=== PATIENT | female | born 1995 | race Caucasian/White ===

== ENCOUNTER 2020-01-20 10:13 | Emergency (ER) | payer SELFPAY ==
[2020-01-20 10:17] VITALS: BP 120/57
[2020-01-20] MEDS ORDERED: DIPHENHYDRAMINE HCL 50 MG CAPSULE PO ONE (10:20)
[2020-01-20] MEDS ORDERED: FAMOTIDINE 20 MG TABLET PO ONE (10:21)
--- NOTE | 2020-01-20 10:27 | ER Document Report ---
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 She has no difficulty breathing swallowing taking p.o. food or fluid she did take Benadryl last night with limited results Associated Symptoms: denies: Nausea, Vomiting, Shortness of breath, Slow to respond, Sore throat Exacerbated by: Denies - REPRODUCTIVE Reproductive: REPORTS: : Past Medical History - General Information source: Patient - Social History Smoking Status: Never Smoker Cigarette use (# per day): No Chew tobacco use (# tins/day): No Smoking Education Provided: No Frequency of alcohol use: None Drug Abuse: None Family History: Reviewed & Not Pertinent Pulmonary Medical History: Reports: Hx Asthma Past Surgical History: Reports: Hx Oral Surgery - wisdom teeth - Immunizations Immunizations up to date: Yes Hx Diphtheria, Pertussis, Tetanus Vaccination: Yes Vertical Provider Document - CONSTITUTIONAL Agree With Documented VS: Yes - INFECTION CONTROL TRAVEL OUTSIDE OF THE [place] IN LAST 30 DAYS: No - HEENT HEENT: Atraumatic, Conjuctival Injection, Normocephalic, PERRLA - NECK Neck: Normal Inspection - RESPIRATORY Respiratory: Breath Sounds Normal, No Respiratory Distress - GI/ABDOMEN Gastrointestinal: Abdomen Soft, Abdomen Non-Tender - REPRODUCTIVE Female Genitalia: Normal Inspection - BACK Back: Normal Inspection - MUSCULOSKELETAL/EXTREMETIES Musculoskeletal/Extremeties: MAEW - NEURO Level of Consciousness: Awake, Alert - DERM Integumentary: Warm - Scant erythemic pruritic area to the bridge of her nose, Dry Course - Re-evaluation Re-evalutation: 01/20/20 10:24 No difficulty breathing or difficulty swallowing no difficulty managing secretions - Vital Signs Vital signs: Temp Pulse Resp BP Pulse Ox 98.2 F 93 14 120/57 L 98 01/20/20 10:16 01/20/20 10:16 01/20/20 10:16 01/20/20 10:16 01/20/20 10:16 Discharge - Discharge Clinical Impression: Acute allergic reaction Qualifiers: Encounter type: initial encounter Qualified Code(s): T78.40XA - Allergy, unspecified, initial encounter Disposition: HOME, SELF-CARE Instructions: Acute Allergic Reaction ([facility]) Prescriptions: Diphenhydramine HCl [Benadryl 25 mg Capsule] 50 mg PO Q6 PRN #25 capsule PRN Reason: Famotidine [Pepcid 20 mg Tablet] 20 mg PO DAILY #12 tablet
== END 2020-01-20 10:35 | disposition home or self-care (01) ==
LOC: ER 10:13
DX: T78.40XA Allergy, unspecified, initial encounter (principal); T63.441A Toxic effect of venom of bees, accidental (unintentional), initial encounter; Y92.9 Unspecified place or not applicable; J45.909 Unspecified asthma, uncomplicated
CPT/HCPCS: 99283

== ENCOUNTER → 2020-02-01 | Outpatient (CLI) | payer SELFPAY ==
--- NOTE | 2020-02-01 15:57 | RADIOLOGY REPORT (SQ) ---
EXAM DESCRIPTION: U/S [id number] TRNABD 1GES W/ODOP IMAGES COMPLETED DATE/TIME: 02/01/2020 3:30 pm REASON FOR STUDY: Z34.81 ENCOUNTER FOR SUPRVSN OF NORMAL , FIRST TRIMESTER Z34.81 ENCOUNTE R FOR SUPRVSN OF NORMAL , FIRST TRIM COMPARISON: None. TECHNIQUE: Transabdominal static and realtime grayscale images acquired of the pelvis. Additional se lected spectral and color Doppler images recorded. All images stored on PACs. bHCG: Unknown CLINICAL DATES: LMP 12/06/2019. 8 weeks 1 day LIMITATIONS: None. FINDINGS: FETUS: Single Living intrauterine . ULTRASOUND EGA: 7 weeks 0 days ULTRASOUND KELLY: 09/19/2020 EFW: Not applicable less than 20 weeks. CRL: 9 mm. FHR: 145 beats per minute. SURVEY: Too early to assess. AMNIOTIC FLUID: Adequate amount. PLACENTA: Not yet developed due to early gestation. SUBCHORIONIC BLEED: And I will SIZE OF BLEED: Not applicable. UTERUS: No masses. No anomalies. CERVICAL LENGTH: 2.8 cm. Closed. RIGHT ADNEXA: Normal ovary with normal vascular flow. 4.6 x 2.2 x 1.8 cm. No adnexal free fluid. No adnexal masses. LEFT ADNEXA: Normal ovary with normal vascular flow. 4.2 x 2.5 x 2.8 cm. There is a 2.4 cm corpus l uteum. No adnexal free fluid. No adnexal masses. FREE FLUID: None. OTHER: No other significant finding. IMPRESSION: LIVING INTRAUTERINE . EGA 7 weeks 0 days Trimester of : First trimester - 0 to 13 weeks. TECHNICAL DOCUMENTATION: JOB ID: [id number] In [employer]- All Rights Reserved rev-12/31 Reading location - IP/workstation name: [email or web address]
== END ==
LOC: RAD 14:34
PROVIDERS: ATTEND Nurse Practitioner Family
DX: Z34.81 Encounter for supervision of other normal pregnancy, first trimester (principal); Z3A.08 8 weeks gestation of pregnancy
CPT/HCPCS: 76801

== ENCOUNTER 2020-06-10 11:51 | Emergency (ER) | payer MEDICAID ==
[2020-06-10] MEDS ORDERED: NORMAL SALINE 1000 ML 1,000 ML IV ONE (12:56)
--- NOTE | 2020-06-10 12:58 | ER Document Report ---
ED Medical Screen (RME) - General Chief Complaint: Dizziness Stated Complaint: LIGHTHEADED/TUNNEL VISION/FEVERISH - 26 WKS PREG Time Seen by Provider: 06/10/20 12:51 Primary Care Provider: ANIYA AMOR ARNP [Primary Care Provider] - Follow up as needed Notes: Patient is a 25-year-old female G2, P1 who presents emergency department with a chief complaint of dizziness. Patient reports occasionally over the past week if she will have hot flashes, tunnel vision and occasional dizziness. Patient denies fever. Patient reports she is currently 26 weeks . Patient states she has not passed out or lost consciousness. Patient does have a history of asthma and hypothyroidism. 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 Denies urinary symptoms. Denies abdominal pain or vaginal bleeding or discharge. TRAVEL OUTSIDE OF THE [place] IN LAST 30 DAYS: No - Related Data Allergies/Adverse Reactions: No Known Allergies Allergy (Verified 03/29/15 13:59) Past Medical History Pulmonary Medical History: Reports: Hx Asthma Past Surgical History: Reports: Hx Oral Surgery - wisdom teeth - Immunizations Immunizations up to date: Yes Hx Diphtheria, Pertussis, Tetanus Vaccination: Yes Physical Exam - Vital signs Vitals: Temp Pulse Resp BP Pulse Ox 98.2 F 100 18 127/71 H 97 06/10/20 12:08 06/10/20 12:08 06/10/20 12:08 06/10/20 12:08 06/10/20 12:08 Course - Re-evaluation Re-evalutation: 06/10/20 12:57 In triage patient's not tachycardic, hypo or hyper tensive. Patient is not febrile. Will initiate basic labs as well as a TSH due to the history of hypothyroidism. Will give 1 L of normal saline once the patient is placed into a private room. Patient is alert and oriented, speaking in full complete sentences here in triage. There is no acute distress. I have greeted and performed a rapid initial assessment of this patient. A comprehensive ED assessment and evaluation of the patient, analysis of test results and completion of the medical decision making process will be conducted by additional ED providers. - Vital Signs Vital signs: Temp Pulse Resp BP Pulse Ox 98.2 F 100 18 127/71 H 97 06/10/20 12:08 06/10/20 12:08 06/10/20 12:08 06/10/20 12:08 06/10/20 12:08 Doctor's Discharge - Discharge Referrals: ANIYA AMOR ARNP [Primary Care Provider] - Follow up as needed
[2020-06-10 13:34] LABS: ABSOLUTE EOSINOPHILS # (AUTO) 0.2 10^3/uL (0.0-0.6); ABSOLUTE LYMPHOCYTES (AUTO) 1.5 10^3/uL (0.5-4.7); ABSOLUTE MONOCYTES (AUTO) 0.9 10^3/uL (0.1-1.4); ABSOLUTE NEUT (AUTO) 8.7 10^3/uL (1.7-8.2); BASOPHILS % (AUTO) 0.3 % (0-2); EOSINOPHILS % (AUTO) 1.8 % (0-6); HEMATOCRIT 35.4 % (36.0-47.0); HEMOGLOBIN 11.9 g/dL (12.0-15.5); LYMPHOCYTES % (AUTO) 13.1 % (13-45); MEAN CORPUSCULAR HEMOGLOBIN 30.4 pg (27.0-33.4); MEAN CORPUSCULAR HGB CONC 33.6 g/dL (32.0-36.0); MEAN CORPUSCULAR VOLUME 91 fl (80-97); MONOCYTES % (AUTO) 8.2 % (3-13); PLATELET COUNT 355 10^3/uL (150-450); RED BLOOD COUNT 3.91 10^6/uL (3.72-5.28); RED CELL DISTRIBUTION WIDTH 13.4 % (11.5-14.0); SEGMENTED NEUTROPHILS % (AUTO) 76.6 % (42-78); TOTAL CELLS COUNTED % (AUTO) 100 %; WHITE BLOOD COUNT 11.3 10^3/uL (4.0-10.5)
[2020-06-10 13:44] LABS: APPEARANCE,URINE SLIGHTLY-CLOUDY; BILIRUBIN,URINE NEGATIVE (NEGATIVE); COLOR,URINE YELLOW; GLUCOSE, URINE 50 mg/dL (NEGATIVE); KETONES,URINE TRACE mg/dL (NEGATIVE); LEUKOCYTE ESTERASE,URINE TRACE (NEGATIVE); NITRITE,URINE NEGATIVE (NEGATIVE); PROTEIN,URINE 30 mg/dL (NEGATIVE); URINE SPECIFIC GRAVITY 1.025; UROBILINOGEN,URINE NEGATIVE mg/dL (<2.0)
[2020-06-10 13:49] LABS: ALBUMIN 3.7 g/dL (3.5-5.0); ALKALINE PHOSPHATASE 72 U/L (38-126); ANION GAP 9 (5-19); ASPARTATE AMINO TRANSFERASE 21 U/L (14-36); BILIRUBIN,DIRECT 0.2 mg/dL (0.0-0.4); BILIRUBIN,TOTAL 0.4 mg/dL (0.2-1.3); BLOOD UREA NITROGEN 7 mg/dL (7-20); CALCIUM 9.4 mg/dL (8.4-10.2); CARBON DIOXIDE 22 mmol/L (22-30); CHLORIDE 102 mmol/L (98-107); GLUCOSE 103 mg/dL (75-110); POTASSIUM 4.4 mmol/L (3.6-5.0); TOTAL PROTEIN 6.6 g/dL (6.3-8.2)
[2020-06-10 15:40] VITALS: BP 124/72
--- NOTE | 2020-06-10 16:55 | ER Document Report ---
ED General - General Chief Complaint: dizziness Stated Complaint: LIGHTHEADED/TUNNEL VISION/FEVERISH - 26 WKS PREG Time Seen by Provider: 06/10/20 12:51 Primary Care Provider: ANIYA AMOR ARNP [NO LOCAL MD] - Follow up as needed TRAVEL OUTSIDE OF THE [place] IN LAST 30 DAYS: No - HPI Notes: Patient is a 25-year-old female who is a G4, P1 at approximately 26 weeks who presents with lightheadedness. Patient states that she had several episodes today where she became lightheaded and had tunnel vision. Patient did not pass out. She denies any fevers or recent illnesses. She denies any CERTIFIED DRIVER EXAMINER complaints. No abdominal pain or vaginal bleeding. She has been urinating more often. Patient states she has a history of migraines and used to be on several medications before she got . She does have daily headaches but this is not new and is not concerning her. She was concerned about the lightheadedness. She has never had a PE or DVT. Patient has follow-up with CERTIFIED DRIVER EXAMINER. Currently, she states she feels well. She denies having any chest pain or nausea. Currently, she has no dizziness or lightheadedness. - Related Data Allergies/Adverse Reactions: No Known Allergies Allergy (Verified 03/29/15 13:59) Past Medical History - General Information source: Patient - Social History Smoking Status: Unknown if Ever Smoked Family History: Reviewed & Not Pertinent Pulmonary Medical History: Reports: Hx Asthma Past Surgical History: Reports: Hx Oral Surgery - wisdom teeth - Immunizations Immunizations up to date: Yes Hx Diphtheria, Pertussis, Tetanus Vaccination: Yes Review of Systems - Review of Systems Notes: CONSTITUTIONAL: No fever, fatigue or weight loss. SKIN: No rash. HENT: No congestion, ear pain, or sore throat. EYES: No recent vision problems or eye pain. CARDIOVASCULAR: No chest pain or edema. RESPIRATORY: Positive for asthma. No shortness of breath. GASTROINTESTINAL: No abdominal pain, nausea, vomiting, bloody stools or diarrhea. GENITOURINARY: No dysuria. Frequency. MUSCULOSKELETAL: No joint pain or swelling. LYMPHATIC: No swollen glands. NEUROLOGIC: No seizures. Chronic headaches. HEMATOLOGIC: No unusual bruising or bleeding. PSYCHIATRIC: No depression or anxiety. Physical Exam - Vital signs Vitals: Temp Pulse Resp BP Pulse Ox 98.2 F 100 18 127/71 H 97 06/10/20 12:08 06/10/20 12:08 06/10/20 12:08 06/10/20 12:08 06/10/20 12:08 - General General appearance: Appears well Notes: VITAL SIGNS: Within normal limits. GENERAL: No acute distress, non-toxic appearance. HEAD: Normal with no signs of head trauma. EYES: EOMI, conjunctiva normal, no discharge. EARS: Hearing grossly intact. NOSE: Normal. NECK: Normal range of motion, no tenderness, supple, no lymphadenopathy, No adenopathy, no JVD. CHEST: Clear breath sounds bilaterally. No wheezes, rales, or rhonchi. CARDIAC: Regular rate and rhythm. S1 and S2, without murmurs, gallops, or rubs. VASCULAR: No Edema. Peripheral pulses normal and equal in all extremities. ABDOMEN: Gravid abdomen. Nontender. GENITOURINARY: Normal, No tenderness MUSCULOSKELETAL: Good range of motion of all major joints. Extremities without clubbing, cyanosis or edema. NEUROLOGICAL: Alert and oriented x 3. No focal sensory or strength deficits. Speech normal. Follows commands appropriately. PSYCHIATRIC: Normal Affect, judgement and mood. SKIN: Normal appearance with no rashes or lesions. Course - Re-evaluation Re-evalutation: 06/10/20 20:41 Patient appears well on exam. She got IV fluids. Patient states she feels better and is not having any dizziness or lightheadedness. Patient does mention that she has a history of asthma which causes her occasional shortness of breath. Denies any current shortness of breath. No chest pain. No nausea. She has been using her inhaler. EKG is unremarkable. Her troponin is normal. Patient does have evidence of a UTI and has frequency. We will treat with Keflex. I did order her initial Rocephin but patient states she would like to go home and feels better. I will order her Keflex here instead. I did attempt to call OB to discuss with them as she is 26 weeks but they were in a procedure and were unable to speak with me at that time. Patient states that she does not want to wait for OB to call back because she feels fine and will follow up with her OB and already has an appointment coming up. I do believe this is reasonable. She had good heart tones. Patient states she feels at baseline. I do not suspect PE. Patient will be discharged home. She was instructed to stay hydrated. Patient was given strict return precautions. - Vital Signs Vital signs: Temp Pulse Resp BP Pulse Ox 97.9 F 99 18 124/72 100 06/10/20 15:40 06/10/20 19:34 06/10/20 19:34 06/10/20 15:40 06/10/20 19:34 - Laboratory Result Diagrams: 06/10/20 13:10 06/10/20 13:10 Laboratory results interpreted by me: 06/10/20 06/10/20 06/10/20 13:10 13:10 13:10 WBC 11.3 H Hgb 11.9 L Hct 35.4 L Absolute Neuts (auto) 8.7 H Sodium 132.8 L Urine Protein 30 H Urine Glucose (UA) 50 H Urine Ketones TRACE H Ur Leukocyte Esterase TRACE H - EKG Interpretation by Me EKG shows normal: Sinus rhythm Rate: Normal When compared to previous EKG there are: No significant change Discharge - Discharge Clinical Impression: Lightheadedness Condition: Stable Disposition: HOME, SELF-CARE Instructions: Dizziness ([facility]), ([facility]) Additional Instructions: Make sure you are staying hydrated. Take your antibiotics as prescribed. Return to the ER for any return of lightheadedness, blurry vision, abdominal pain, any other concerning symptoms. Please follow up with your CERTIFIED DRIVER EXAMINER. Prescriptions: Cephalexin [Keflex] 500 mg PO BID 7 Days #14 capsule Referrals: ANIYA AMOR ARNP [NO LOCAL MD] - Follow up as needed
[2020-06-10] MEDS ORDERED: CEFTRIAXONE 1 GM/D5W RTU 1 GM/50 ML RTUPB IV ONE (18:54)
[2020-06-10] MEDS ORDERED: CEPHALEXIN 500 MG CAPSULE PO ONE (19:23)
--- NOTE | 2020-06-10 21:16 | EKG REPORT ---
SEVERITY:- NORMAL ECG - SINUS RHYTHM : Confirmed by: Roque Skinner MD 10-Jun-2020 21:15:14
== END 2020-06-10 19:35 | disposition home or self-care (01) ==
LOC: ER 11:51
DX: O23.42 Unspecified infection of urinary tract in pregnancy, second trimester (principal); O26.892 Other specified pregnancy related conditions, second trimester; R42 Dizziness and giddiness; R50.9 Fever, unspecified; H53.489 Generalized contraction of visual field, unspecified eye; R51.9 Headache, unspecified; Z3A.26 26 weeks gestation of pregnancy; J45.909 Unspecified asthma, uncomplicated
CPT/HCPCS: 93005; 99284; 96360; 96361; 36415; 87086; 84443; 85025; 80053; 81001; 84484; 93010; J7030

== ENCOUNTER 2020-09-04 07:58 | Inpatient (IN) | payer MEDICAID ==
[2020-09-04] MEDS ORDERED: RINGERS SOLUTION,LACTATED 500 ML IV ONE (08:45)
--- NOTE | 2020-09-04 08:45 | Admission Physical ---
Datetime Report Generated by CPN: 09/04/2020 08:45 CURRENT ADMISSION Chief Complaint: Uterine Contractions; Suspected Ruptured Membranes Chief Complaint Other: suspected rupture this am around 5am no large gush just leaking actim prom + Indication for Induction: Not Applicable Admit Impression : Term, Intrauterine ; Active Labor Admit Plan: Admit to Unit; Initiate Labor Protocol Admit Plan- Other: asthma GBS neg ALLERGIES Medication Allergies: No Medication Allergies: No Known Allergies (03/29/2015) Latex: No Latex Allergies OBSTETRICAL HISTORY EDC: 09/19/2020 00:00 : 4 Para: 1 Term: 1 : 0 SAB: 2 IAB: 0 Ectopic: 0 Livin Cesareans: 0 VBACs: 0 Multiple Births: 0 Gestational Diabetes: No Rh Sensitization: No Incompetent Cervix: No MONSERRAT: No Infertility: No ART Treatment: No Uterine Anomaly: No IUGR: No Hx Previous C/S: No Macrosomia: No Hx Loss/Stillborn: No PIH: No Hx : No Placenta Previa/Abruption: No Depression/PP Depression: No PTL/PROM: No Post Hemorrhage: No Current Procedures: Ultrasound; NST MEDICAL HISTORY Diabetes: No Blood Transfusion: No Pulmonary Disease (Asthma, TB): Yes Breast Disease: No Hypertension: No Civil Engineering 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 Surgery: No Heart Disease: No Hosp/Surgery: No Autoimmune Disorder: No Anesthetic Complications: No Kidney Disease: No Abnormal Pap Smear: No Neuro/Epilepsy: No Psychiatric Disorders: No Other Medical Diseases: No Hepatitis/Liver Disease: No Significant Family History: No Varicosities/Phlebitis: No Trauma/Violence : No Thyroid Dysfunction: No Medical History Comments: asthma since childhood, uses inhaler INFECTIOUS HISTORY Gonorrhea: No Genital Herpes: No Chlamydia: No Tuberculosis: No Syphilis: No Hepatitis: No HIV/AIDS Exposure: No Rash or Viral Illness: No HPV: No PHYSICAL EXAM General: Normal HEENT: Deferred Neurologic: Normal Thyroid: Deferred Heart: Normal Lungs: Normal Breast: Deferred Back: Deferred Abdomen: Normal Genitourinary Exam: Normal Extremities: Normal DTRs: Deferred Pelvic Type: Adequate Physical Exam Comments: cervix 4- per RN Vital Signs: Reviewed MEMBRANES Membranes: Ruptured Amniotic Fluid Color: Clear FETUS A EGA: 37.6 Monitoring: External US FHR- Baseline: 150 Variability: Moderate 6-25bpm Accelerations: 15X15 Decelerations: None Admit Comment: desires epidural INFORMED CONSENT Assignment: Marci Carpio MD Signature: with User ID: Gerber : with User ID: Gerber
[2020-09-04] MEDS ORDERED: FENTANYL CITRATE INJ/PF 100 MCG/2 ML AMPUL ONE (09:12)
[2020-09-04] MEDS ORDERED: OXYTOCIN 10 UNIT/ML VIAL ONE (09:13)
[2020-09-04] MEDS ORDERED: LIDOCAINE 1% INJ-PF (10 MG/ML) 30 ML SDV ONE (09:13)
[2020-09-04] MEDS ORDERED: MISOPROSTOL 0.2 MG TABLET ONE (09:13)
[2020-09-04] MEDS ORDERED: OXYTOCIN/0.9 % SODIUM CHLORIDE 30 UNIT/500 ML RTUINJ ONE (09:14)
[2020-09-04 09:45] LABS: ABSOLUTE LYMPHOCYTES (AUTO) 1.3 10^3/uL (0.5-4.7); ABSOLUTE MONOCYTES (AUTO) 0.8 10^3/uL (0.1-1.4); ABSOLUTE NEUT (AUTO) 9.5 10^3/uL (1.7-8.2); BASOPHILS % (AUTO) 0.4 % (0-2); EOSINOPHILS % (AUTO) 0.4 % (0-6); HEMOGLOBIN 9.9 g/dL (12.0-15.5); LYMPHOCYTES % (AUTO) 10.9 % (13-45); MEAN CORPUSCULAR HEMOGLOBIN 26.5 pg (27.0-33.4); MEAN CORPUSCULAR HGB CONC 32.9 g/dL (32.0-36.0); MEAN CORPUSCULAR VOLUME 81 fl (80-97); PLATELET COUNT 293 10^3/uL (150-450); RED BLOOD COUNT 3.72 10^6/uL (3.72-5.28); SEGMENTED NEUTROPHILS % (AUTO) 81.3 % (42-78); TOTAL CELLS COUNTED % (AUTO) 100 %; WHITE BLOOD COUNT 11.7 10^3/uL (4.0-10.5)
[2020-09-04] MEDS ORDERED: FENTANYL CITRATE INJ/PF 100 MCG/2 ML AMPUL IV ONE (10:00)
[2020-09-04 10:13] LABS: APPEARANCE,URINE SLIGHTLY-CLOUDY; BILIRUBIN,URINE NEGATIVE (NEGATIVE); COLOR,URINE YELLOW; GLUCOSE, URINE NEGATIVE (NEGATIVE); KETONES,URINE NEGATIVE (NEGATIVE); LEUKOCYTE ESTERASE,URINE TRACE (NEGATIVE); NITRITE,URINE NEGATIVE (NEGATIVE); PROTEIN,URINE 30 mg/dL (NEGATIVE); URINE SPECIFIC GRAVITY 1.019; UROBILINOGEN,URINE NEGATIVE mg/dL (<2.0)
[2020-09-04] MEDS ORDERED: FENTANYL/BUPIVACAINE/NS/PF 300 MCG/150 ML RTUINJ EPI ONE (10:14)
[2020-09-04] MEDS ORDERED: ROPIVACAINE HCL 0.2% INJ/PF (2 MG/ML) 20 ML SDV ONE (10:14)
[2020-09-04] MEDS ORDERED: EPHEDRINE SULFATE INJ 50 MG/1 ML AMPULE ONE (10:14)
[2020-09-04 10:37] LABS: URINE AMPHETAMINES SCREEN NEGATIVE; URINE BARBITURATES SCREEN NEGATIVE; URINE BENZODIAZEPINES SCREEN NEGATIVE; URINE COCAINE SCREEN NEGATIVE; URINE MARIJUANA (THC) SCREEN NEGATIVE; URINE METHADONE SCREEN NEGATIVE; URINE PHENCYCLIDINE SCREEN NEGATIVE
[2020-09-04] MEDS ORDERED: BUTALB/ACETAMINOPHEN/CAFFEINE 1 TAB EACH PO ONE (11:00)
[2020-09-04] MEDS ORDERED: BUTALB/ACETAMINOPHEN/CAFFEINE 1 TAB EACH ONE (11:05)
[2020-09-04] MEDS ORDERED: VARICELLA VACC/PF (1350 UNIT/0.5 ML) 0.5 ML VIAL SUBCUT PRN ×2 (13:33→23:50)
[2020-09-04] MEDS ORDERED: MEASLES,MUMPS&RUBELLA VACC/PF 0.5 ML VIAL SUBCUT PRN ×2 (13:33→23:50)
[2020-09-04] MEDS ORDERED: GLYCERIN/WITCH HAZEL LEAF 1 EACH MED..WIPE TP PRN ×2 (13:33→23:50)
[2020-09-04] MEDS ORDERED: ACETAMINOPHEN 650 MG SUPP.RECT PR PRN ×2 (13:33→23:50)
[2020-09-04] MEDS ORDERED: DIPHENHYDRAMINE HCL 25 MG CAPSULE PO PRN ×2 (13:33→23:50)
[2020-09-04] MEDS ORDERED: ACETAMINOPHEN WITH CODEINE #3 TABLET PO PRN ×4 (13:33→23:50)
[2020-09-04] MEDS ORDERED: ACETAMINOPHEN 325 MG TABLET PO PRN ×2 (13:33→23:50)
[2020-09-04] MEDS ORDERED: DIPH/PERTUSS(ACELL)/TETANUS VAC/PF 0.5 ML SYR (>=10YO) IM PRN ×2 (13:33→23:50)
[2020-09-04] MEDS ORDERED: DIBUCAINE 1% OINTMENT 28 GM TP PRN ×2 (13:33→23:50)
[2020-09-04] MEDS ORDERED: ZOLPIDEM TARTRATE 5 MG TABLET PO PRN ×2 (13:33→23:50)
[2020-09-04] MEDS ORDERED: PSEUDOEPHEDRINE HCL 30 MG TABLET PO PRN ×2 (13:33→23:50)
[2020-09-04] MEDS ORDERED: FAMOTIDINE 20 MG TABLET PO PRN ×2 (13:33→23:50)
[2020-09-04] MEDS ORDERED: OXYTOCIN/0.9 % SODIUM CHLORIDE 30 UNIT/500 ML RTUINJ IV PRN ×2 (13:33→23:50)
[2020-09-04] MEDS ORDERED: MAGNESIUM HYDROXIDE SUSP 30 ML UDCUP PO PRN ×2 (13:33→23:50)
[2020-09-04] MEDS ORDERED: MAG HYDROX/AL HYDROX/SIMETH SUSP 30 ML UDCUP PO PRN ×2 (13:33→23:50)
[2020-09-04] MEDS ORDERED: BENZOCAINE/MENTHOL AEROSOL SPRAY 56 ML TOP PRN ×2 (13:33→23:50)
[2020-09-04] MEDS ORDERED: IBUPROFEN 800 MG TABLET PO SCH (14:00)
--- NOTE | 2020-09-04 15:09 | Birth Certificate Data ---
Cert Data Datetime Report Generated by CPN: 09/04/2020 15:08 CERTIFICATE DATA Delivery Provider: Marci Carpio MD (09/04/2020 08:12:Aditi Devi CNM) 47a. Care: Yes (09/04/2020 08:12:Alina Villagran RN) 47b. Date of First Visit: 01/23/2020 00:00 (09/04/2020 08:12:Alina Villagran RN) 47c. Date of Last Visit: 09/03/2020 00:00 (09/04/2020 08:12:Alina Villagran RN) 47d. Number of Visits: 11 (09/04/2020 08:12:Alina Villagran RN) 48a. Number of Prev Live Births: 1 (09/04/2020 08:12:Alina Villagran RN) 48b. Now Livin (09/04/2020 08:12:Alina Villagran RN) 48c. Live Births Now : 0 (09/04/2020 08:12: system process) 48d. Date of Last Live : 06/02/2015 00:00 (09/04/2020 08:12:Alina Villagran RN) 48e. Losses: 2 (09/04/2020 08:12:Alina Villagran RN) 48f. Date of Last Preg Loss: 07/30/2017 00:00 (09/04/2020 08:12:Alina Villagran RN) RISK FACTORS IN THIS 49a. Diabetes: No (09/04/2020 08:12:Dilcia Hernandes RN) 49b. Hypertension: No (09/04/2020 08:12:Dilcia Hernandes RN) 49c. Previous Births: 0 (09/04/2020 08:12:Alina Villagran RN) 49d. Stillborns: No (09/04/2020 08:12:Dilcia Hernandes RN) 49d. IUGR: No (09/04/2020 08:12:Dilcia Hernandes RN) 49e. Infertility Treatment: No (09/04/2020 08:12:Dilcia Hernandes RN) 49f. Previous Cesareans: 0 (09/04/2020 08:12:Alina Villagran RN) Mother's Height 50b. Height Inches: 63 (09/04/2020 08:38:QS system process) Mother's Weight 51a. Pre- Weight (lbs): 140 (09/04/2020 08:12:Alina Villagran RN) 51b. Weight at Delivery (lbs): 174 (09/04/2020 08:38:QS system process) 52. Dt Last Normal Menses Began: 12/06/2019 00:00 (09/04/2020 08:12:Alina Villagran RN) Infections Present/Treated 53a. Gonorrhea: No (09/04/2020 08:12:Dilcia Hernandes RN) Results this Hospital Visit : Negative (09/04/2020 08:12:Alina Villagran RN) 53b. Syphilis: No (09/04/2020 08:12:Dilcia Hernandes RN) Results this Hospital Visit: NONREACTIVE (09/04/2020 09:25:QS system process) 53c. Chlamydia: No (09/04/2020 08:12:Dilcia Hernandes RN) Results this Hospital Visit: Negative (09/04/2020 08:12:Alina Villagran RN) 53d. Hepatitis B: No (09/04/2020 08:12:Dilcia Hernandes RN) Results this Hospital Visit: Negative (09/04/2020 08:12:Alina Villagran RN) 53e. Hepatitis C: Negative (09/04/2020 08:12:Alina Villagran RN) 53h. Mother Tested for HBsAG: Yes (09/04/2020 08:12:Alina Villagran RN) 53i. Date Tested: 02/08/2020 00:00 (09/04/2020 08:12:Alina Villagran RN) 53j. Test Result: Negative (09/04/2020 08:12:Alina Villagran RN) Obstetric Procedures 54a, b, c. Obstetric Procedures: Ultrasound; NST (09/04/2020 08:12:Dilcia Hernandes RN) Cigarette Smoking Cigarette Smoking: Former Smoker. [id number] (09/04/2020 08:12:Dilcia Hernandes RN) 55a. 3 Months Before Preg - Ci (09/04/2020 08:12:Dilcia Hernandes RN) 55a. Packs: 0 (09/04/2020 08:12:Dilcia Hernandes RN) 55b. 1st Trimester of Preg- Ci (09/04/2020 08:12:Dilcia Hernandes RN) 55b. Packs: 0 (09/04/2020 08:12:Dilcia Hernandes RN) 55c. 2nd Trimester of Preg- Ci (09/04/2020 08:12:Dilcia Hernandes RN) 55c. Packs: 0 (09/04/2020 08:12:Dilcia Hernandes RN) 55d. 3rd Trimester of Preg- Ci (09/04/2020 08:12:Dilcia Hernandes RN) 55d. Packs: 0 (09/04/2020 08:12:Dilcia Hernandes RN) Onset of Labor 56a. PROM >12 Hrs: 8.68 (09/04/2020 08:12:QS system process) 56b. Precipitous Labor <3 Hrs: 8 (09/04/2020 08:12:QS system process) 56c. Prolonged Labor > 20 Hrs: 8 (09/04/2020 08:12:QS system process) 57a. Induction of Labor: N/A (09/04/2020 08:12:Marsha Carias RN) 57c. Non-Vertex Presentation A: Vertex (09/04/2020 08:12:Marci Carpio MD) 57d. Steroids - Lung Mat: None (09/04/2020 08:12:Marsha Carias RN) 57d. Steroids - Lung Mat: Not Applicable (09/04/2020 08:12:Marci Carpio MD) 57g. Moderate/Heavy Meconium: Clear (09/04/2020 08:12:Marci Carpio MD) 57h. Intolerance of Labor: N/A (09/04/2020 08:12:Marsha Carias RN) : N/A (09/04/2020 08:12:Marsha Carias RN) 57i. Epidural/Spinal Anesthesia: Epidural (09/04/2020 08:12:Marsha Carias RN) Method of Delivery 58a. Forceps - Unsuccessful A: N/A (09/04/2020 08:12:Marsha Carias RN) 58b. Vacuum - Unsuccessful A: N/A (09/04/2020 08:12:Marsha Carias RN) 58c. Presentation at 58c. Presentation at - A : Vertex (09/04/2020 08:12:Marci Carpio MD) 58c. Presentation at - A : N/A (09/04/2020 08:12:Marsha Carias RN) 58c. Presentation at - A : Cephalic (09/04/2020 11:02:Marsha Carias RN) Final Route and Method of Del 58d. Baby A Route/Delivery: Vaginal (09/04/2020 13:51:Marsha Carias RN) 58e. Trial of Labor Attempted: No (09/04/2020 08:12:Marsha Carias RN) 58e. Trial of Labor Attempted A: N/A (09/04/2020 08:12:Marsha Carias RN) 58e. Trial of Labor Attempted B: N/A (09/04/2020 08:12:Marsha Galena, RN) Maternal Morbidity 59b. 3rd or 4th Degree Lacs: None (09/04/2020 08:12:Marci Carpio, MD) Birthweight Baby A: 2857 (09/04/2020 08:12:Marsha Galena, RN) 60a. Pounds : 6 (09/04/2020 08:12:QS system process) 60b. Ounces: 5 (09/04/2020 08:12:QS system process) 61. GA at Delivery Baby A: 37.6 (09/04/2020 08:12:Marci Carpio MD) : Early Term- 37- 38.6 Weeks (09/04/2020 08:12:QS system process) 62a. 5 Minute Baby A: 9 (09/04/2020 08:12:QS system process)
--- NOTE | 2020-09-04 15:09 | Delivery Summary ---
Del Sum A-C Datetime Report Generated by CPN: 09/04/2020 15:08 DELIVERY PERSONNEL DELIVERY PERSONNEL: [id number] Delivery Doctor:: Marci Carpio MD Labor and Delivery Nurse:: Marsha Carias RNlab support tech Nurse:: MAURICIO Tapia Additional Personnel: : Mirella Miguel RN MATERNAL INFORMATION Delivery Anesthesia: Epidural Medications After Delivery: Pitocin 30 Units in 500ml NS/D5W Estimated Blood Loss (ml): 150 Delivery QBL: 150 Maternal Complications: None Provider Comments: SVDVF over intact perineum per Dr. Carpio. Shoulders del easily, followed by body and cord. Cord doubly clamped and cut, cord blood collected. Placenta spont via hoffmann. Apgars 9, 9. LABOR SUMMARY EDC: 09/19/2020 00:00 No. Babies in Womb: 1 Attempted: No Labor Anesthesia: Epidural LABOR INFORMATION Reason for Induction: Not Applicable Onset of Labor: 09/04/2020 05:00 Complete Dilatation: 09/04/2020 13:13 Oxytocin: N/A Group B Beta Strep: Negative Name of Antibiotic Given: n/a Steroids Given: None Reason Steroids Not Administered: Not Applicable MEMBRANES Membranes Rupture Method: Spontaneous Rupture of Membranes: 09/04/2020 05:00 Length of Rupture (hr): 8.68 Amniotic Fluid Color: Clear Amniotic Fluid Amount: Small Amniotic Fluid Odor: Normal STAGES OF LABOR Stage 1 hr: 8 Stage 1 min: 13 Stage 2 hr: 0 Stage 2 min: 28 Stage 3 hr: 0 Stage 3 min: 6 Total Time in Labor hr: 8 Total Time in Labor min: 47 VAGINAL DELIVERY Episiotomy: None Laceration #1: None Laceration Extension #1: N/A Laceration Repair: Not Applicable Sponge Count Correct: Yes Sharps Count Correct: Yes CSECTION DELIVERY Primary Indication: N/A Secondary Indication: N/A CSection Incidence: N/A Labor: N/A Elective: N/A CSection Incision: N/A Uterine Closure: N/A BABY A INFORMATION Delivery Date/Time: 09/04/2020 13:41 Method of Delivery: Vaginal Nurse Controlled Delivery: No Born in Route : No : N/A Forceps: N/A Vacuum Extraction: N/A Shoulder Dystocia : No PRESENTATION/POSITION BABY A Presentation: Cephalic Cephalic Presentation: Vertex Vertex Position: Left Occipital Anterior Breech Presentation: N/A PLACENTA INFORMATION BABY A Placenta Delivery Time : 09/04/2020 13:47 Placenta Method of Delivery: Spontaneous Placenta Status: Delivered SCORES BABY A Heart Rate 1 min: >100 bpm Resp Effort 1 min: Good Cry Reflex Irritability 1 min: Cough or Sneeze or Pulls Away Muscle Tone 1 min: Active Motion Color 1 min: Body [place], Extremities Blue SCORE 1 MIN: 9 Heart Rate 5 min: >100 bpm Resp Effort 5 min: Good Cry Reflex Irritability 5 min: Cough or Sneeze or Pulls Away Muscle Tone 5 min: Active Motion Color 5 min: Body [place], Extremities Blue SCORE 5 MIN: 9 INFORMATION BABY A Gestational Age at Delivery: 37.6 Gestational Status: Early Term- 37- 38.6 Weeks Outcome : Liveborn Condition : Stable Sex: Female IDENTIFICATION BABY A Verification Date/Time: 09/04/2020 13:54 ID Band Number: [id number] Mother's Name Verified: Yes Infant RN Verifying Infant: A. Redfield RN Additional Verifying Personnel: Luis Bella CHEMICALS DISTILLER WEIGHT/LENGTH BABY A Birthweight (gm): 2857 Infant Weight (lb): 6 Infant Weight (oz): 5 Infant Length (in): 20.00 Length (cm): 50.80 CORD INFORMATION BABY A No. Cord Vessels: 3 Nuchal Cord : N/A Cord Blood Taken: Yes-For Eval (Mom's Blood Type - or O+) Suction: None ASSESSMENT BABY A Infant Complications: None Physical Findings at Delivery: Within Normal Limits Infant Respirations: Appears Normal Skin to Skin: Yes Skin to Skin Time (min): 60 Electrical And Electronic Assembler/ALS Called : No Transferred To: Remains with Mother BABY B INFORMATION : N/A SIGNATURES Assignment: Marci Carpio, MD Signature: with User ID: Cristina : with User ID: Cristina : I was personally available for consultation and serving as supervising physician for the MLP.
[2020-09-04] MEDS ORDERED: IBUPROFEN 800 MG TABLET ONE (15:18)
[2020-09-04] MEDS ORDERED: FERROUS SULFATE 325 MG TABLET PO SCH (18:00)
[2020-09-04] MEDS ORDERED: DOCUSATE SODIUM 100 MG CAPSULE PO SCH (18:00)
[2020-09-04] MEDS ORDERED: DOCUSATE SODIUM 100 MG CAPSULE ONE (18:48)
[2020-09-04] MEDS ORDERED: FERROUS SULFATE 325 MG TABLET PO ONE (18:48)
[2020-09-04] MEDS ORDERED: ACETAMINOPHEN WITH CODEINE #3 TABLET ONE (19:12)
[2020-09-05] MEDS: IBUPROFEN 800 MG TABLET PO SCH ×2 (05:22→14:34)
[2020-09-05 06:59] LABS: HEMOGLOBIN 10.3 g/dL (12.0-15.5); MEAN CORPUSCULAR HEMOGLOBIN 27.1 pg (27.0-33.4); MEAN CORPUSCULAR HGB CONC 33.2 g/dL (32.0-36.0); MEAN CORPUSCULAR VOLUME 82 fl (80-97); PLATELET COUNT 262 10^3/uL (150-450); RED CELL DISTRIBUTION WIDTH 15.7 % (11.5-14.0); WHITE BLOOD COUNT 10.6 10^3/uL (4.0-10.5)
[2020-09-05 08:31] VITALS: BP 115/73
[2020-09-05] MEDS ORDERED: SENNOSIDES/DOCUSATE 8.6-50 MG 1 EACH TABLET PO SCH ×2 (10:00)
[2020-09-05] MEDS ORDERED: FERROUS SULFATE 325 MG TABLET PO SCH (10:00)
[2020-09-05] MEDS ORDERED: DOCUSATE SODIUM 100 MG CAPSULE PO SCH (10:00)
[2020-09-05] MEDS ORDERED: PRENATAL VITAMIN W DHA CAPSULE PO SCH ×2 (10:00)
--- NOTE | 2020-09-05 11:08 | PDOC DISCHARGE SUMMARY ---
Impression - Admit/DC Date/PCP Admission Date/Primary Care Provider: 09/04/20 08:28 CHRISTINE HANSON MD Discharge Date: 09/05/20 - Discharge Diagnosis (1) Normal vaginal delivery Is this a current diagnosis for this admission?: Yes (2) Active labor at term Is this a current diagnosis for this admission?: Yes (3) SROM (spontaneous rupture of membranes) Is this a current diagnosis for this admission?: Yes - Additional Information Discharge Diet: Regular Discharge Activity: Balance Activity w/Rest, Pelvic Rest Referrals: CHRISTINE HANSON MD [Primary Care Provider] - Prescriptions: Ibuprofen [Motrin 800 mg Tablet] 800 mg PO Q8HP PRN #60 tablet PRN Reason: Vit/Dha [ Multi + Dha Capsule] 1 cap PO DAILY #90 capsule Montelukast Sodium [Singulair 10 mg Tablet] 10 mg PO QHS #30 tablet Levothyroxine Sodium [Synthroid 0.1 mg Tablet] 0.1 mg PO DAILY #30 tablet Home Medications: Albuterol Sulfate [Albuterol Sulfate Hfa] 2 puff IH PRN 05/16/14 Ibuprofen [Motrin 800 mg Tablet] 800 mg PO Q8HP PRN #60 tablet 09/05/20 Levothyroxine Sodium [Synthroid 0.1 mg Tablet] 0.1 mg PO DAILY #30 tablet 09/05/20 Montelukast Sodium [Singulair 10 mg Tablet] 10 mg PO QHS #30 tablet 09/05/20 Vit/Dha [ Multi + Dha Capsule] 1 cap PO DAILY #90 capsule 09/05/20 Hospital Course 59. Maternal Morbidity (serious complications experinced by the mother associated with labor and delivery: None of the above Results Laboratory Results: WBC 10.6 10^3/uL (4.0-10.5) H 09/05/20 06:26 RBC 3.80 10^6/uL (3.72-5.28) 09/05/20 06:26 Hgb 10.3 g/dL (12.0-15.5) L 09/05/20 06:26 Hct 31.0 % (36.0-47.0) L 09/05/20 06:26 MCV 82 fl (80-97) 09/05/20 06:26 MCH 27.1 pg (27.0-33.4) 09/05/20 06:26 MCHC 33.2 g/dL (32.0-36.0) 09/05/20 06:26 RDW 15.7 % (11.5-14.0) H 09/05/20 06:26 Plt Count 262 10^3/uL (150-450) 09/05/20 06:26 Lymph % (Auto) 10.9 % (13-45) L 09/04/20 09:25 Divide % (Auto) 7.0 % (3-13) 09/04/20 09:25 Eos % (Auto) 0.4 % (0-6) 09/04/20 09:25 Baso % (Auto) 0.4 % (0-2) 09/04/20 09:25 Absolute Neuts (auto) 9.5 10^3/uL (1.7-8.2) H 09/04/20 09:25 Absolute Lymphs (auto) 1.3 10^3/uL (0.5-4.7) 09/04/20 09:25 Absolute Monos (auto) 0.8 10^3/uL (0.1-1.4) 09/04/20 09:25 Absolute Eos (auto) 0.0 10^3/uL (0.0-0.6) 09/04/20 09:25 Absolute Basos (auto) 0.0 10^3/uL (0.0-0.2) 09/04/20 09:25 Seg Neutrophils % 81.3 % (42-78) H 09/04/20 09:25 Urine Color YELLOW 09/04/20 09:50 Urine Appearance SLIGHTLY-CLOUDY 09/04/20 09:50 Urine pH 6.0 (5.0-9.0) 09/04/20 09:50 Ur Specific [place] 1.019 09/04/20 09:50 Urine Protein 30 mg/dL (NEGATIVE) H 09/04/20 09:50 Urine Glucose (UA) NEGATIVE mg/dL (NEGATIVE) 09/04/20 09:50 Urine Ketones NEGATIVE mg/dL (NEGATIVE) 09/04/20 09:50 Urine Blood SMALL (NEGATIVE) H 09/04/20 09:50 Urine Nitrite NEGATIVE (NEGATIVE) 09/04/20 09:50 Urine Bilirubin NEGATIVE (NEGATIVE) 09/04/20 09:50 Urine Urobilinogen NEGATIVE mg/dL (<2.0) 09/04/20 09:50 Ur Leukocyte Esterase TRACE (NEGATIVE) H 09/04/20 09:50 Urine Ascorbic Acid NEGATIVE (NEGATIVE) 09/04/20 09:50 Membranes Rupture POSITIVE (NEGATIVE) H 09/04/20 08:15 Urine Opiates Screen NEGATIVE 09/04/20 09:50 Urine Methadone Screen NEGATIVE 09/04/20 09:50 Ur Barbiturates Screen NEGATIVE 09/04/20 09:50 Ur Phencyclidine Scrn NEGATIVE 09/04/20 09:50 Ur Amphetamines Screen NEGATIVE 09/04/20 09:50 U Benzodiazepines Scrn NEGATIVE 09/04/20 09:50 Urine Cocaine Screen NEGATIVE 09/04/20 09:50 U Marijuana (THC) Screen NEGATIVE 09/04/20 09:50 RPR NONREACTIVE (NONREACTIVE) 09/04/20 09:25 Blood Type A NEGATIVE 09/04/20 09:25 Blood Type Confirm A NEGATIVE 09/04/20 12:04 Antibody Screen POSITIVE 09/04/20 09:25 Antibody Identification RHOGAM INDUCED ANTI-D 09/04/20 09:25 Crossmatch See Detail 09/04/20 09:25 Plan Plan of Treatment: follow up in 4 weeks at [facility] for post check
--- NOTE | 2020-09-05 11:30 | PDOC PROGRESS REPORT ---
Subjective-OB Progress Note for:: 09/05/20 Subjective: reports bleeding slowing, pain controlled with current meds. denies needs Physical Exam (OB) Vital Signs: Temp Pulse Resp BP Pulse Ox 97.5 F 95 16 115/73 100 09/05/20 08:08 09/05/20 08:08 09/05/20 08:08 09/05/20 08:08 09/05/20 08:08 Intake & Output 09/04/20 09/05/20 09/06/20 06:59 06:59 06:59 Intake Total 400 Balance 400 Weight 79.2 kg - Maternal Morbidity 59. Maternal Morbidity (serious complications experinced by the mother associated with labor and delivery: None of the above - Abdomen Description: Soft Hernia Present: No Fundal Description: Firm, Midline Fundal Height: u/u - u/2 - Abdominal Distension: No distension Tenderness: Nontender - Extremities Lower extremities: Dinah's sign - neg Calf: Normal, Nontender Objective-Diagnostic Laboratory: 09/05/20 06:26 09/04/20 09/05/20 09:25 06:26 WBC 10.6 H RBC 3.80 Hgb 10.3 L Hct 31.0 L MCV 82 MCH 27.1 MCHC 33.2 RDW 15.7 H Plt Count 262 Blood Type A NEGATIVE Antibody Screen POSITIVE Assessment and Plan(PN) - Assessment and Plan (1) Normal vaginal delivery Is this a current diagnosis for this admission?: Yes (2) Active labor at term Is this a current diagnosis for this admission?: Yes (3) SROM (spontaneous rupture of membranes) Is this a current diagnosis for this admission?: Yes - Time Spent with Patient Time with patient: Less than 15 minutes - Disposition Anticipated Discharge Disposition: Home, Self Care Anticipated Discharge Timeframe: within 24 hours
== END 2020-09-05 18:05 | disposition home or self-care (01) | DRG 807 ==
LOC: LC 07:58 → LR 08:28 → 2S 19:40
PROVIDERS: ADMIT Obstetrics & Gynecology; ATTEND Obstetrics & Gynecology
PROC: 10E0XZZ Delivery of Products of Conception, External Approach (ICD-10-PCS; principal; 2020-09-04)
DX: O80 Encounter for full-term uncomplicated delivery (principal); Z37.0 Single live birth; Z3A.37 37 weeks gestation of pregnancy
CPT/HCPCS: 1967; 36415; 80307; 81005; 84112; 85025; 85027; 86592; 86850; 86870; 86900; 86901; 86920; 86922; 94760; J2590; J2795; J3010; J3490